=== PATIENT | male | born 1955 | race Caucasian/White ===

== ENCOUNTER 2018-07-08 10:29 | Emergency (ER) | payer MEDICARE, MEDICAID ==
[~2018-07-08] VITALS: Ht 180.3 cm; Wt 74.0 kg
[~2018-07-08 10:29] MED LIST: ARIP5TAB4 PO; ASPI-1264 PO; BACL20TA84 PO; CLON-527 PO; CLOP75TA35 PO; COMIN IH; DULO-31 PO; DULO60CA45 PO; FAMO-128 PO; FINA5TAB11 PO; FLO0.4C PO; FOLI1TAB16 PO; METO25TA6 PO; NIFE60TA10 PO; NIFE90TA44 PO; NORCO10T PO; PRED10TA PO; REM15T PO; TIOT18CA7 IH; TRAM50TA2 PO
[2018-07-08 11:06] LABS: BASOPHILS % (AUTO) 0.3 % (0-1); EOSINOPHILS # (AUTO) 0.1 X10'3 (0-0.9); EOSINOPHILS % (AUTO) 1.2 % (0-6); HEMATOCRIT 34.8 % (42.0-52.0); HEMOGLOBIN 10.9 g/dl (14.0-17.9); LYMPHOCYTES # (AUTO) 0.4 X10'3 (1.1-4.8); MEAN CORPUSCULAR HEMOGLOBIN 25.8 PG (27.0-31.0); MEAN CORPUSCULAR HGB CONC 31.4 g/dL (33.0-36.5); MEAN CORPUSCULAR VOLUME 82.2 FL (78-98); MEAN PLATELET VOLUME 7.5 FL (7.4-10.4); MONOCYTES # (AUTO) 0.5 X10'3 (0-0.9); MONOCYTES % (AUTO) 4.7 % (2-12); NEUTROPHILS % (AUTO) 89.8 % (42-75); PLATELET COUNT 397 X10'3 (140-440); RED BLOOD COUNT 4.24 X10'6 (4.70-6.10); WHITE BLOOD COUNT 10.1 X10'3 (4.5-11.0)
[2018-07-08 11:26] LABS: CLARITY,URINE CLEAR (Clear); COLOR,URINE YELLOW (Yellow); GLUCOSE, URINE NEGATIVE (Neg); KETONES,URINE NEGATIVE (Neg); LEUKOCYTE ESTERASE ,URINE NEGATIVE (Neg); NITRITES, URINE NEGATIVE (Neg); OCCULT BLOOD,URINE NEGATIVE (Neg); PH,URINE 6.5 (4.8-8.0); PROTEIN,URINE 100 mg/dl (Neg); UROBILINOGEN,URINE 0.2 E.U/dL (0.2-1.0)
[2018-07-08 11:27] LABS: UA COLLECTION TYPE CLN CATCH MIDSTREAM
[2018-07-08 11:30] LABS: INR 1.2 INR; PROTHROMBIN TIME 11.6 SECONDS (9.0-12.0)
[2018-07-08 11:36] LABS: BACTERIA,URINE NONE SEEN /HPF (Neg); RBC,URINE NONE SEEN /HPF (0-2); SQUAMOUS EPITHELIAL CELL,UR FEW /LPF (FEW); WBC,URINE 0-4 /HPF (0-4)
[2018-07-08 11:37] LABS: HYALINE CASTS 0-3 /LPF (NEGATIVE)
[2018-07-08] MEDS ORDERED: morphine 4 MG/ML inj SYRINge IV ONE (12:10)
[2018-07-08 12:19] LABS: ALANINE AMINOTRANSFERASE 23 U/L (12-78); ALBUMIN 2.8 G/DL (3.4-5.0); ALBUMIN/GLOBULIN RATIO 0.5 (1.1-1.5); ALKALINE PHOSPHATASE 99 IU/L (46-116); ANION GAP 15 (8-16); ASPARTATE AMINO TRANSFERASE 59 U/L (10-37); BILIRUBIN,TOTAL 0.5 MG/DL (0.1-1.0); BLOOD UREA NITROGEN 49 MG/DL (7-18); BUN/CREATININE RATIO 11.6 (5.4-32.0); CALCIUM 9.1 MG/DL (8.5-10.1); CHLORIDE 100 MMOL/L (99-107); CREATININE 4.21 MG/DL (0.60-1.10); GLUCOSE 130 MG/DL (70-104); SODIUM 138 MMOL/L (135-145); TOTAL CARBON DIOXIDE 23.1 MMOL/L (24-32); TOTAL PROTEIN 8.1 G/DL (6.4-8.2); eGFR 14 ML/MIN
[2018-07-08] MEDS ORDERED: diphenhydrAMINE 50 mg/ml inj IV ONE (12:35)
--- NOTE | 2018-07-08 12:35 | NUR ---
Notified Dr. Herrera regarding patient stating that he was feeling itchy after receiving morphine and that patient also stated that he does get itchy after receiving percocet. Dr. Herrera stated to place a verbal order for benedryl 50 mg IV once now.
--- NOTE | 2018-07-08 13:00 | NUR ---
Went to administer benedryl to patient, patient stated that he was no longer itchy and did not need medication.
[2018-07-08 13:44] LABS: ANISOCYTOSIS 2+; PLATELET ESTIMATE NORMAL
[2018-07-08] MEDS ORDERED: HYDROmorphone 1 mg/ml syringe IV ONE (14:25)
[2018-07-08 14:31] VITALS: BP 142/71
== END 2018-07-08 15:06 | disposition home or self-care (01) ==
LOC: ER 10:29
DX: R10.84 Generalized abdominal pain (principal); R11.2 Nausea with vomiting, unspecified; I13.0 Hypertensive heart and chronic kidney disease with heart failure and stage 1 through stage 4 chronic kidney disease, or unspecified chronic kidney disease; N18.9 Chronic kidney disease, unspecified; I50.9 Heart failure, unspecified; I25.119 Atherosclerotic heart disease of native coronary artery with unspecified angina pectoris; E78.00 Pure hypercholesterolemia, unspecified; J44.9 Chronic obstructive pulmonary disease, unspecified; K21.9 Gastro-esophageal reflux disease without esophagitis; G89.29 Other chronic pain; Z86.73 Personal history of transient ischemic attack (TIA), and cerebral infarction without residual deficits; Z98.62 Peripheral vascular angioplasty status; Z98.890 Other specified postprocedural states; Z88.5 Allergy status to narcotic agent; Z79.82 Long term (current) use of aspirin; Z79.899 Other long term (current) drug therapy
CPT/HCPCS: 36415; 74176; 80053; 81001; 85025; 85610; 96374; 96375; 99284; J1170; J1200; J2270